=== PATIENT | male | born 1960 | race Caucasian/White ===

== ENCOUNTER → 2019-03-20 | Outpatient (CLI) | payer BC ==
[~2019-03-20] MED LIST: AMBIEN CR12.5 MG PO; AMIODARONE HCL400 MG PO; BENICAR20 MG PO; COUMADIN3 MG PO; COUMADIN4 MG PO; LASIX20 MG PO; LEVAQUIN750 MG PO; LIPITOR10 MG PO; NAPROXEN500 M1 PO; PANTOPRAZOLE SO40 MG PO; PROAIR HFA INH8.5 GM INH; SYMBICORT 16010.2 GM INH; TAPAZOLE5 MG PO; [UNRECOGNIZED DRUG - OTHER] NEB
--- NOTE | 2019-03-20 10:14 | Diagnostic Imaging Report ---
TECHNIQUE: Magnetic resonance imaging of the LEFT KNEE was performed WITHOUT injected contrast. HISTORY: Knee pain COMPARISON: None available. FINDINGS: LIGAMENTS AND TENDONS: ACL: Intact PCL: Intact Collateral ligaments: Intact Iliotibial band: Unremarkable Popliteal tendon: Intact Extensor mechanism: Intact JOINT: Menisci: Medial: Complex tearing of the body through the posterior horn with dominant horizontal component. Lateral: Intact Articular Cartilage: Medial Compartment: Partial-thickness cartilage loss Lateral Compartment: No focal defect. Patellofemoral Compartment: No focal defect. Joint Fluid: Small joint effusion BONE: No focal or infiltrative bone marrow replacing abnormality. No acute fracture. SOFT TISSUES: Otherwise, unremarkable. IMPRESSION: Medial meniscus horizontal tear body and posterior horn with partial thickness cartilage loss Signed by: Dr. Robert Hawkins M.D. on 03/20/2019 10:11 AM
== END ==
LOC: MRI 08:47
PROVIDERS: ATTEND Family Medicine
DX: M17.12 Unilateral primary osteoarthritis, left knee (principal); M23.312 Other meniscus derangements, anterior horn of medial meniscus, left knee

== ENCOUNTER 2019-04-22 14:44 | Observation (INO) | payer BC ==
[~2019-04-22] VITALS: Ht 170.2 cm; Wt 90.7 kg
--- OUTSIDE RECORDS SUMMARY | 2019-04-22 14:47 | XMS REPORT ---
Author [facility] Address Unknown Phone Unavailable Care Team Providers Care Photo Tube Assembler Name Role Phone ALYSE GALVEZ Unavailable Unavailable Payers Payer Name Policy Type Policy Number Effective Date Expiration Date Problems This patient has no known problems. Allergies, Adverse Reactions, Alerts Allergy Name Allergy Type Status Severity Reaction(s) Onset Date Inactive Date Treating Clinician Comments No Known Allergies DA Active U 2013-09-03 00:00:00 Medications This patient has no known medications. Results Test Description Test Time Test Comments Text Results Atomic Results Result Comments MRI KNEE LEFT WO 2019-03-20 10:09:00 [place] [address] Patient Name: CHANG TAVAREZ MR #: [id number] : 1960 Age/Sex: 58/M Req #: [id number] Adm Physician: Ordered by: GALVEZ ANDREW DO Report #: [id number] Location: MRI Room/Bed: Procedure: [id number] MRI/MRI KNEE LEFT WO Exam Date: Exam Time: REPORT STATUS: Signed TECHNIQUE: Magnetic resonance imaging of the LEFT KNEE was performed WITHOUT injected contrast. HISTORY: Knee pain COMPARISON: None available. FINDINGS: LIGAMENTS AND TENDONS: ACL: Intact PCL: Intact Collateral ligaments: Intact Iliotibial band: Unremarkable Popliteal tendon: Intact Extensor mechanism: Intact JOINT: Menisci: Medial: Complex tearing of the body through the posterior horn with dominant horizontal component. Lateral: Intact Articular Cartilage: Medial Compartment: Partial-thickness cartilage loss Lateral Compartment: No focal defect. Patellofemoral Compartment: No focal defect. Joint Fluid: Small joint effusion BONE: No focal or infiltrative bone marrow replacing abnormality. No acute fracture. SOFT TISSUES: Otherwise, unremarkable. IMPRESSION: Medial meniscus horizontal tear body and posterior horn with partial thickness cartilage loss Signed by: Dr. Alyse Guerra M.D. on 03/20/2019 10:11 AM Dictated By: ALYSE GUERRA MD 1011 Transcribed By: ROBIN on 03/20/19 1011 COPY TO: ALYSE GALVEZ DO
[2019-04-22] MEDS ORDERED: ASPIRIN 81 MG ENTERIC COATED PO ONE (14:53)
[2019-04-22] MEDS ORDERED: CLOPIDOGREL BISULFATE 75 MG TAB ONE (14:53)
[2019-04-22] MEDS ORDERED: ENOXAPARIN SODIUM INJ 100 MG/ML SYR SC ONE (14:53)
[2019-04-22] MEDS ORDERED: ONDANSETRON HCL INJ 2MG/ML 2ML 2 MG/ML VIAL IV STA (14:55)
[2019-04-22] MEDS ORDERED: MORPHINE SULFATE 2 MG/ML SYR 1ML IV STA (14:55)
[2019-04-22] MEDS ORDERED: SODIUM CHLORIDE 0.9% 1000ML 1,000 ML IV STA (14:55)
[2019-04-22] MEDS ORDERED: MORPHINE SULFATE INJ 4 MG/ML INJ 1ML ONE (15:01)
[2019-04-22] MEDS ORDERED: ONDANSETRON HCL INJ 2MG/ML 2ML 2 MG/ML VIAL ONE (15:01)
[2019-04-22 15:05] LABS: BASOPHILS # (AUTO) 0.1 (0.0-0.1); BASOPHILS % 0.5 % (0.0-1.0); EOSINOPHILS # (AUTO) 0.1 (0.0-0.4); EOSINOPHILS % 0.8 % (0.0-6.0); HEMATOCRIT 45.4 % (38.2-49.6); HEMOGLOBIN 15.7 g/dL (14.0-18.0); LYMPHOCYTES # (AUTO) 2.5 (1.0-3.2); LYMPHOCYTES % 19.7 % (18.0-39.1); MEAN CORPUSCULAR HEMOGLOBIN 30.8 pg (28-32); MEAN CORPUSCULAR HGB CONC 34.6 g/dL (31-35); MONOCYTES # (AUTO) 1.3 (0.2-0.8); MONOCYTES % 10.3 % (4.4-11.3); NEUTROPHILS # (AUTO) 8.6 (2.1-6.9); NEUTROPHILS % 67.6 % (38.7-80.0); PLATELET COUNT 251 x10e3/uL (140-360); RED CELL DISTRIBUTION WIDTH 12.5 % (11.7-14.4)
--- NOTE | 2019-04-22 15:06 | NUR ---
difib pads on pt
[2019-04-22] MEDS ORDERED: ENOXAPARIN SODIUM INJ 100 MG/ML SYR SC STA (15:07)
[2019-04-22 15:15] LABS: INR 1.22; PROTHROMBIN TIME 16.2 seconds (11.9-14.5)
[2019-04-22 15:16] LABS: PARTIAL THROMBOPLASTIN TIME 25.3 seconds (23.8-35.5)
[2019-04-22 15:17] LABS: ALANINE AMINOTRANSFERASE 86 IU/L (0-55); ALBUMIN 4.4 g/dL (3.5-5.0); ALBUMIN/GLOBULIN RATIO 1.5 (0.8-2.0); ALKALINE PHOSPHATASE 59 IU/L (40-150); ANION GAP 11.4 mmol/L (8-16); BLOOD UREA NITROGEN 20 mg/dL (7-26); BUN/CREATININE RATIO 15 (6-25); CARBON DIOXIDE 29 mmol/L (22-29); CHLORIDE 105 mmol/L (98-107); CREATINE KINASE 23 IU/L (30-200); CREATININE, SERUM 1.37 mg/dL (0.72-1.25); EST GLOMERULAR FILTRATION RATE 53 ML/MIN (60-); GLUCOSE 98 mg/dL (74-118); MAGNESIUM 1.8 MG/DL (1.3-2.1); POTASSIUM 4.4 mmol/L (3.5-5.1); SODIUM 141 mmol/L (136-145)
--- NOTE | 2019-04-22 15:43 | Diagnostic Imaging Report ---
EXAMINATION: CHEST SINGLE (PORTABLE) INDICATION: Chest pain COMPARISON: None FINDINGS: LINES/TUBES:None LUNGS:The lungs are well-inflated. No focal consolidation or pulmonary edema. PLEURA:No pleural effusion or pneumothorax. MEDIASTINUM:The cardiomediastinal silhouette appears normal in size and shape. BONES/SOFT TISSUES:No acute osseous injury. ABDOMEN:No free air under the diaphragm. IMPRESSION: No focal pneumonia or pulmonary edema. Signed by: Katy Hammond MD on 04/22/2019 3:40 PM
[2019-04-22] MEDS ORDERED: LORAZEPAM INJ 2 MG/ML VIAL ONE (15:53)
[2019-04-22] MEDS ORDERED: LORAZEPAM INJ 2 MG/ML VIAL IV ONE (16:45)
--- NOTE | 2019-04-22 16:47 | Diagnostic Imaging Report ---
History: Confusion Comparison studies: None Technique: Axial images were obtained from the skull base to the vertex. Coronal and sagittal reconstructions obtained from the axial data. Dose modulation, iterative reconstruction, and/or weight based adjustment of the mA/kV was utilized to reduce the radiation dose to as low as reasonably achievable. Intravenous contrast: None Findings: Scalp/skull: No abnormalities. No fractures, blastic or lytic lesions. Extra-axial spaces: No masses. No fluid collections. Brain sulci: Appropriate for age. Ventricles: Normal in size and configuration. No hydrocephalus. Parenchyma: No abnormal densities. No masses, hemorrhage, acute or chronic cortical vascular insults. Sellar/suprasellar region: No abnormalities Craniocervical junction: Patent foramen magnum. No Chiari one malformation. Incidental findings: None. IMPRESSION: No abnormalities. Signed by: Dr. Rafiq Gardner M.D. on 04/22/2019 4:44 PM
--- NOTE | 2019-04-22 16:50 | Diagnostic Imaging Report ---
EXAM: CT Chest WITH contrast- Pulmonary Embolism Protocol INDICATION: Shortness of breath COMPARISON: Chest radiograph 04/22/2019 TECHNIQUE: Chest was scanned utilizing a multidetector helical scanner from the lung apex through the level of the diaphragm after administration of IV contrast. Thin section reconstructions were obtained with special concentration on the pulmonary arteries. Coronal and sagittal reformations were obtained. Pulmonary embolism protocol was performed. IV CONTRAST: 100 cc of Isovue 370 RADIATION DOSE: Total DLP: 1554.7 mGy*cm Dose modulation, iterative reconstruction, and/or weight based adjustment of the mA/kV was utilized to reduce the radiation dose to as low as reasonably achievable. COMPLICATIONS: None FINDINGS: LINES/ TUBES: None. PULMONARY ARTERIES: No filling defect is identified within the pulmonary arteries to the segmental level. The subsegmental pulmonary arteries are not well opacified. Main pulmonary artery measures 2.5 cm in diameter. LUNGS AND AIRWAYS: The central airways are patent. No evidence of pneumonia or pulmonary edema. Minimal dependent atelectasis. PLEURA: The pleural spaces are clear. HEART AND MEDIASTINUM: The thyroid gland is normal. No mediastinal, hilar or axillary lymphadenopathy. The heart is normal in size.. There is no pericardial effusion. Minimal scattered coronary artery atherosclerotic calcifications.. UPPER ABDOMEN: No acute findings in the upper abdomen. BONES: No acute osseous injury. No suspicious lytic or blastic lesions. SOFT TISSUES: Unremarkable. IMPRESSION: No pulmonary embolism. No other acute cardiopulmonary findings. Signed by: Katy Hammond MD on 04/22/2019 4:47 PM
[2019-04-22 17:20] LABS: CREATININE, SERUM 1.38 mg/dL (0.72-1.25)
[2019-04-22] MEDS ORDERED: NITROGLYCERIN 0.4 MG SUBL SL PRN (18:30)
[2019-04-22] MEDS ORDERED: MORPHINE SULFATE 2 MG/ML SYR 1ML IV PRN (18:30)
[2019-04-22] MEDS ORDERED: ONDANSETRON HCL INJ 2MG/ML 2ML 2 MG/ML VIAL IV PRN (18:30)
[2019-04-22] MEDS ORDERED: FAMOTIDINE 20 MG/2 ML VIAL IV SCH (18:45)
--- NOTE | 2019-04-22 19:46 | NUR ---
RECEIVED REPORT FROM [facility] NURSE. PATIENT ARRIVED VIA STRETCHER. PATIENT IN NO PAIN OR DISTRESS. CALL LIGHT WITHIN REACH.
[2019-04-22] MEDS ORDERED: SODIUM CHLORIDE 0.9% 50ML 50 ML ONE (19:50)
[2019-04-22] MEDS ORDERED: IOPAMIDOL 370 MG/ML 200 ML INFUS..BTL INJ ONE (19:50)
[2019-04-22 20:00] VITALS: BP 138/90
[2019-04-22 20:01] VITALS: BP 138/90
[2019-04-22 20:59] VITALS: BP 138/90
[2019-04-22] MEDS ORDERED: ZOLPIDEM TARTRATE 10 MG TAB PO SCH (21:10)
[2019-04-22] MEDS ORDERED: ATORVASTATIN CA20 MG PO (21:13)
[2019-04-22] MEDS ORDERED: LEVOTHYROXINE50 MCG PO (21:13)
[2019-04-22] MEDS ORDERED: SOTALOL80 MG PO (21:13)
[2019-04-22] MEDS ORDERED: WARFARIN SODIUM2 MG PO (21:13)
[2019-04-22] MEDS ORDERED: FENOFIBRATE145 MG PO (21:13)
[2019-04-22 21:30] VITALS: BP 138/90
[2019-04-22 21:41] LABS: AMPHETAMINES SCREEN,URINE NEGATIVE (NEGATIVE); BENZODIAZEPINES SCREEN,URINE POSITIVE (NEGATIVE); PHENCYCLIDINE SCREEN,URINE NEGATIVE (NEGATIVE)
--- NOTE | 2019-04-22 21:50 | NUR ---
CALLED AND TALKED TO DR. RUSSELL ABOUT PATIENT REQUESTING AMBIEN TO HELP HIM SLEEP. DR. RUSSELL APPROVED OF THE MEDICATION TO BE GIVEN TO THE PATIENT .
[2019-04-23] VITALS: BP 137/81
[2019-04-23 00:13] LABS: CREATINE KINASE 17 IU/L (30-200)
[2019-04-23 04:00] VITALS: BP 122/93
[2019-04-23] MEDS ORDERED: ENOXAPARIN SODIUM INJ 100 MG/ML SYR SC SCH ×2 (04:00)
[2019-04-23 04:25] LABS: BASOPHILS # (AUTO) 0.1 (0.0-0.1); BASOPHILS % 0.7 % (0.0-1.0); EOSINOPHILS # (AUTO) 0.1 (0.0-0.4); EOSINOPHILS % 1.2 % (0.0-6.0); HEMATOCRIT 42.2 % (38.2-49.6); HEMOGLOBIN 14.4 g/dL (14.0-18.0); LYMPHOCYTES # (AUTO) 2.3 (1.0-3.2); LYMPHOCYTES % 24.7 % (18.0-39.1); MEAN CORPUSCULAR HGB CONC 34.1 g/dL (31-35); MEAN CORPUSCULAR VOLUME 90.8 fL (81-99); MONOCYTES % 10.5 % (4.4-11.3); NEUTROPHILS # (AUTO) 5.7 (2.1-6.9); PLATELET COUNT 188 x10e3/uL (140-360); RED BLOOD COUNT 4.65 x10e6/uL (4.3-5.7); RED CELL DISTRIBUTION WIDTH 12.8 % (11.7-14.4)
[2019-04-23 04:47] LABS: CREATINE KINASE 17 IU/L (30-200)
[2019-04-23 05:43] LABS: BLOOD UREA NITROGEN 17 mg/dL (7-26); BUN/CREATININE RATIO 15 (6-25); CALCIUM 9.2 mg/dL (8.4-10.2); CARBON DIOXIDE 26 mmol/L (22-29); CHLORIDE 107 mmol/L (98-107); CHOL/HDL RATIO 5.9 (3.9-4.7); CHOLESTEROL 176 MD/DL (0-199); CREATININE, SERUM 1.17 mg/dL (0.72-1.25); EST GLOMERULAR FILTRATION RATE > 60 ML/MIN (60-); GLUCOSE 98 mg/dL (74-118); HDL CHOLESTEROL 30 MG/DL (40-60); LDL CHOLESTEROL 70 MG/DL (60-130); SODIUM 140 mmol/L (136-145); TRIGLYCERIDES 380 MG/DL (0-149)
[2019-04-23] MEDS ORDERED: ATORVASTATIN 20 MG TAB PO SCH (06:00)
--- NOTE | 2019-04-23 07:12 | NUR ---
Received change of shift report from PM nurse. Walking rounds completed.
--- NOTE | 2019-04-23 07:19 | NUR ---
GAVE REPORT TO ONCOMING NURSE. CALL LIGHT WITHIN REACH. PATIENT IN BED.
[2019-04-23] MEDS ORDERED: LEVOTHYROXINE SODIUM 50 MCG TAB PO SCH (07:30)
[2019-04-23 07:59] VITALS: BP 133/93
[2019-04-23] MEDS ORDERED: BUDESONIDE/FORMOTEROL 160/4.5MCG INHALER INH SCH (09:00)
[2019-04-23] MEDS ORDERED: PANTOPRAZOLE SOD 40 MG TABEC PO SCH (09:00)
[2019-04-23] MEDS ORDERED: ASPIRIN 81 MG ENTERIC COATED PO SCH (09:00)
[2019-04-23] MEDS ORDERED: FENOFIBRATE 48 MG TAB PO SCH (09:00)
[2019-04-23] MEDS ORDERED: SOTALOL HCL 80 MG TAB PO SCH (09:00)
[2019-04-23] MEDS ORDERED: FENOFIBRATE 145 MG TAB PO SCH ×2 (09:00→17:00)
--- NOTE | 2019-04-23 09:50 | NUR ---
PT DISCHARGED HOME WITH , RESP EVEN AND UNLABORED , PT OXYGEN SATURATION 95% RA, PT IV SITE REMOVED ,NO SWELLING NO REDNESS TO SITE., PT WAS ASKED TO FOLLOW UP WITH HIS PCP, AND RELEASE SPECIALIST.
[2019-04-23] MEDS ORDERED: WARFARIN SOD 2 MG TAB PO SCH (17:00)
[2019-04-23] MEDS ORDERED: ZOLPIDEM TARTRATE 10 MG TAB PO SCH (21:00)
--- NOTE | 2019-04-24 01:34 | Consultation ---
DATE OF CONSULTATION: 04/23/2019 Cardiology Consultation REQUESTING PHYSICIAN: Yan Wiseman MD REASON FOR CONSULTATION: Chest pain. HISTORY OF PRESENT ILLNESS: This is a 58-year-old male with history of atrial fibrillation status post ablation on sotalol, thyroid disease, and hyperlipidemia, who presents with complaints of shortness of breath. The patient reports he has been short of breath for the last couple months with worsening shortness of breath in the last 2 days. He has not noted any association with activity or position. He denies any chest pain, palpitations, edema, orthopnea, or PND. He denies any fever, chills, or sick contacts. He denies any recent travel. CT chest was performed in the ER without evidence of pulmonary embolism. Cardiology is consulted for further cardiac evaluation. 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 REVIEW OF SYSTEMS: Negative except as per HPI. PAST MEDICAL HISTORY: 1. Atrial flutter status post ablation on sotalol. 2. Thyroid disease. 3. Hyperlipidemia. PAST SURGICAL HISTORY: 1. Tonsillectomy. 2. Knee surgery. 3. Laminectomy. ALLERGIES: NO KNOWN DRUG ALLERGIES. MEDICATIONS: Please see medication list. SOCIAL HISTORY: Denies tobacco or illicit drugs. He does drink alcohol occasionally. FAMILY HISTORY: Denies family history of heart disease. PHYSICAL EXAMINATION: VITAL SIGNS: Temperature 97.5, pulse 65, respiratory rate 18, blood pressure 133/93, and oxygen saturation 99% on 4 L nasal cannula. GENERAL: A well-developed and well-nourished man, in no acute distress. HEENT: Normocephalic and atraumatic. Pupils are equal. No scleral icterus. NECK: Supple. No thyromegaly or cervical lymphadenopathy. No carotid bruits. LUNGS: Clear to auscultation bilaterally. No wheezes or crackles. CARDIOVASCULAR: Normal rate. Regular rhythm. Normal S1 and S2. ABDOMEN: Soft and nontender. EXTREMITIES: No edema. NEUROLOGIC: Nonfocal exam. LABORATORY DATA: Sodium 140, potassium 4, chloride 107, CO2 of 26, BUN 17, and creatinine 1.17. Troponin less than 0.001. Cholesterol 176, LDL 70, and HDL 30. Triglycerides 380. WBC 9.18, hemoglobin 14.4, hematocrit 42.2, and platelets 188. EKG, normal sinus rhythm with nonspecific ST abnormality. IMPRESSION: 1. Shortness of breath. 2. Atrial fibrillation status post ablation. 3. Thyroid disease. 4. Hyperlipidemia. RECOMMENDATIONS: The patient ruled out for myocardial infarction with serial cardiac biomarkers. 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 No further cardiac evaluation is indicated at this time. Consider evaluation for pulmonary etiologies of dyspnea. Thank you for this consult. We will continue to follow. Melissa Queen MD ABS/MODL /[id number]
== END 2019-04-23 07:30 | disposition home or self-care (01) ==
LOC: ER 14:48 → ERHOLD 18:35 → MED/SURG 19:46
PROVIDERS: ADMIT Internal Medicine; ATTEND Internal Medicine
DX: R07.9 Chest pain, unspecified (principal); I48.91 Unspecified atrial fibrillation; Z79.01 Long term (current) use of anticoagulants; I10 Essential (primary) hypertension; I12.9 Hypertensive chronic kidney disease with stage 1 through stage 4 chronic kidney disease, or unspecified chronic kidney disease; N18.3 Chronic kidney disease, stage 3 (moderate); E03.9 Hypothyroidism, unspecified; E66.9 Obesity, unspecified; Z68.31 Body mass index [BMI] 31.0-31.9, adult
CPT/HCPCS: 36415 ×2; 70450; 71045; 71260; 80048; 80053; 80061; 80307; 82550 ×2; 82553 ×2; 82565; 83735; 83880; 84484 ×2; 84520; 85025 ×2; 85610; 85730; 93005; 94760; 99284; G0378 ×2; J1650 ×2; J2060; J2270; J2405; J7030; Q9967

== ENCOUNTER → 2021-02-28 | Outpatient (CLI) | payer BC ==
[~2021-02-28] MED LIST changes: +ATORVASTATIN CA20 MG PO; +FENOFIBRATE145 MG PO; +LEVOTHYROXINE50 MCG PO; +SOTALOL80 MG PO; +WARFARIN SODIUM2 MG PO
== END ==
LOC: RAD 02-27 15:15
PROVIDERS: ATTEND Family Medicine
DX: J98.01 Acute bronchospasm (principal); U09.9 Post COVID-19 condition, unspecified
CPT/HCPCS: 71046

== ENCOUNTER 2024-12-03 09:50 | Emergency (ER) | payer BC, MEDICARE ==
[~2024-12-03] VITALS: Ht 167.6 cm; Wt 86.2 kg
[2024-12-03 10:55] LABS: BASOPHILS % 0.5 % (0.0-1.0); EOSINOPHILS % 0.4 % (0.0-6.0); LYMPHOCYTES % 17.8 % (18.0-39.1); MONOCYTES % 11.9 % (4.4-11.3); NEUTROPHILS % 69.2 % (38.7-80.0); RED CELL DISTRIBUTION WIDTH 12.2 % (11.7-14.4)
[2024-12-03] MEDS: SODIUM CHLORIDE 0.9% 1000ML 1,000 ML IV STA (10:57)
[2024-12-03] MEDS: DIPHENHYDRAMINE HCL INJ 50 MG/ML VIAL IV ONE (10:57)
[2024-12-03] MEDS: DIAZEPAM INJ 5 MG/ML 2 ML IV ONE (10:59)
[2024-12-03 11:03] LABS: AMPHETAMINES SCREEN,URINE NEGATIVE (NEGATIVE); CANNABINOIDS SCREEN,URINE NEGATIVE (NEGATIVE); COCAINE SCREEN,URINE NEGATIVE (NEGATIVE); LEUKOCYTE ESTERASE ,URINE NEGATIVE (NEGATIVE); METHADONE SCREEN, URINE NEGATIVE (NEGATIVE); OPIATES SCREEN,URINE NEGATIVE (NEGATIVE); PROTEIN,URINE DIPSTICK 1+ (NEGATIVE); URINE UROBILINOGEN 0.2 mg/dL (0.2 - 1)
[2024-12-03 11:17] LABS: INR 1.03
[2024-12-03 11:20] LABS: EPITHELIAL CELLS,URINE FEW /LPF
[2024-12-03 11:24] LABS: EST GLOMERULAR FILTRATION RATE 58 ML/MIN (>=60)
[2024-12-03 11:40] LABS: ETHANOL < 10.0 mg/dL (0.0-10.0)
[2024-12-03] MEDS ORDERED: IOPAMIDOL 370 MG/ML 100 ML INFUS..BTL INJ ONE (12:13)
[2024-12-03] MEDS ORDERED: CEFDINIR300 MG PO (14:11)
[2024-12-03 14:33] VITALS: BP 123/86; PULSE 75; RESP 16
[2024-12-03 14:37] VITALS: PULSE 75; RESP 16; TEMP 98.2; O2SAT 96
== END 2024-12-03 14:37 | disposition home or self-care (01) ==
LOC: ER 10:40
DX: R11.2 Nausea with vomiting, unspecified (principal); N39.0 Urinary tract infection, site not specified; R74.8 Abnormal levels of other serum enzymes; R42 Dizziness and giddiness; F41.9 Anxiety disorder, unspecified
CPT/HCPCS: 36415; 70496; 70498; 71045; 80053; 80307; 80320; 80329 ×2; 81001; 83735; 84443; 84484; 85025; 85610; 85730; 93005; 99284; J1200; J3360; J7030; Q9967